=== PATIENT | male | born 1970 | race Caucasian/White ===

== ENCOUNTER 2023-06-13 01:15 | Emergency (ER) | payer OTHER ==
[~2023-06-13] VITALS: Ht 172.7 cm; Wt 83.9 kg
[2023-06-13] MEDS ORDERED: ATOR10TA PO (01:30)
[2023-06-13] MEDS ORDERED: ACET1TAB23 PO (01:57)
[2023-06-13 02:42] VITALS: BP 157/97; TEMP 98.7; O2SAT 97
== END 2023-06-13 02:15 | disposition home or self-care (01) ==
LOC: ER 01:31
DX: J02.9 Acute pharyngitis, unspecified (principal); I10 Essential (primary) hypertension; E78.5 Hyperlipidemia, unspecified; Z79.899 Other long term (current) drug therapy
CPT/HCPCS: A4606; A4663

== ENCOUNTER 2023-09-02 17:04 | Emergency (ER) | payer OTHER ==
[~2023-09-02] VITALS: Ht 175.3 cm; Wt 95.3 kg
[~2023-09-02 17:04] MED LIST: ACET1TAB23 PO; ATOR10TA PO
[2023-09-02 19:56] VITALS: O2SAT 97
[2023-09-02] MEDS ORDERED: CIPR7.5D LEFT EAR (20:26)
== END 2023-09-02 20:36 | disposition home or self-care (01) ==
LOC: ER 17:06
DX: H60.92 Unspecified otitis externa, left ear (principal); E78.5 Hyperlipidemia, unspecified; Z79.899 Other long term (current) drug therapy
CPT/HCPCS: A4606; A4663

== ENCOUNTER 2023-09-07 15:36 | Emergency (ER) | payer OTHER ==
[~2023-09-07] VITALS: Ht 172.7 cm; Wt 102.5 kg
[~2023-09-07 15:36] MED LIST changes: +CIPR7.5D LEFT EAR
[2023-09-07 15:50] VITALS: O2SAT 98
[2023-09-07] MEDS ORDERED: AMOX-430 PO (17:32)
== END 2023-09-07 17:42 | disposition home or self-care (01) ==
LOC: ER 15:38
DX: H65.92 Unspecified nonsuppurative otitis media, left ear (principal); H91.8X2 Other specified hearing loss, left ear; E78.5 Hyperlipidemia, unspecified; Z79.2 Long term (current) use of antibiotics; Z79.899 Other long term (current) drug therapy
CPT/HCPCS: A4606; A4663

== ENCOUNTER 2024-07-06 03:44 | Emergency (ER) | payer OTHER ==
[~2024-07-06] VITALS: Ht 172.7 cm; Wt 102.1 kg
[~2024-07-06 03:44] MED LIST changes: +AMOX-430 PO
[2024-07-06 04:47] VITALS: BP 144/85; TEMP 97.6; O2SAT 94
== END 2024-07-06 04:47 | disposition home or self-care (01) ==
LOC: ER 03:46
DX: Z13.89 Encounter for screening for other disorder (principal); R03.0 Elevated blood-pressure reading, without diagnosis of hypertension; E78.5 Hyperlipidemia, unspecified; F41.9 Anxiety disorder, unspecified; Z79.899 Other long term (current) drug therapy
CPT/HCPCS: A4606; A4663